=== PATIENT | female | born 1960 | race Caucasian/White ===

== ENCOUNTER → 2019-05-01 12:43 | Outpatient (CLI) | payer OTHER, SELFPAY ==
--- NOTE | 2019-05-01 12:44 | DI.RAD.S_ITS ---
PROCEDURE: XR KNEE RT 3V INDICATIONS: Right knee pain TECHNIQUE: 3 views of the knee were acquired. COMPARISON: None. FINDINGS: Bones: No fractures or dislocations. No suspicious bony lesions. Chronic-appearing dystrophic calcification seen in the medial soft tissues. Mild narrowing of the lateral joint space Small joint effusion. No suspicious soft tissue calcifications. Scattered degenerative subchondral sclerosis and spurring. IMPRESSION: Mild degenerative changes as above. Small joint effusion. If the patient's pain or other symptoms persist, consider further evaluation with MRI Dictated by: Jameson Casas M.D. on 05/01/2019 at 13:11 Approved by: Jameson Casas M.D. on 05/01/2019 at 13:12
== END ==
PROVIDERS: Family Provider Nurse Practitioner; Visit Provider Nurse Practitioner
DX: M25.561 Pain in right knee (principal); M25.461 Effusion, right knee
CPT/HCPCS: 73562